=== PATIENT | female | born 1995 ===

== ENCOUNTER 2018-07-19 08:51 | Emergency (ER) | payer SELFPAY ==
[2018-07-19] MEDS ORDERED: Sodium Chloride 0.9% 1,000 ML IV ONE (09:12)
[2018-07-19 09:22] LABS: BASO % 0.5 % (0.0-2.0); EOS # 0.2 K/uL (0.0-0.7); EOS % 3.5 % (0.0-4.0); HEMOGLOBIN 12.4 g/dL (11.0-16.0); LYMPH # 1.2 K/uL (1.0-4.3); LYMPH % 21.2 % (20.0-40.0); MEAN CELL VOLUME 86.9 fL (81.0-99.0); MEAN CORPUSCULAR HEMOGLOBIN 28.5 pg (27.0-31.0); MEAN CORPUSCULAR HGB CONC 32.8 g/dL (33.0-37.0); MEAN PLATELET VOLUME 8.5 fL (7.2-11.7); MONO # 0.6 K/uL (0.0-0.8); MONO % 10.3 % (0.0-10.0); NEUT # 3.7 K/uL (1.8-7.0); NEUT % 64.5 % (50.0-75.0); RBC 4.33 Mil/uL (3.80-5.20); RED CELL DISTRIBUTION WIDTH 12.6 % (11.5-14.5); WHITE BLOOD COUNT 5.7 K/uL (4.8-10.8)
[2018-07-19 09:25] LABS: HCG,QUALITATIVE URINE NEGATIVE (NEGATIVE)
--- NOTE | 2018-07-19 09:26 | C.PDOC ---
History Of Present Illness 22 y/o female,w/PMhx of asthma, presents to the ER complaining of RLQ abdominal pain which has been present for the past 1 week. Patient states that she has associated nausea, vomiting, and dysuria. Patient reports that her LMP was 2 weeks ago. Denies having fever, chills, back pain, hematuria. Time Seen by Provider: 07/19/18 08:54 Chief Complaint (Nursing): Abdominal Pain History Per: Patient History/Exam Limitations: no limitations Onset/Duration Of Symptoms: Days Current Symptoms Are (Timing): Still Present Severity: Moderate Past Medical History Reviewed: Historical Data, Nursing Documentation, Vital Signs Vital Signs: Last Vital Signs Temp 97.9 F 07/19/18 08:54 Pulse 78 07/19/18 08:54 Resp 18 07/19/18 08:54 BP 129/78 07/19/18 08:54 Pulse Ox 97 07/19/18 08:54 - Medical History PMH: Asthma Surgical History: No Surg Hx Family History: States: No Known Family Hx - Social History Hx Alcohol Use: No Hx Substance Use: No - Immunization History Hx Tetanus Toxoid Vaccination: No Hx Influenza Vaccination: No Hx Pneumococcal Vaccination: No Review Of Systems Except As Marked, All Systems Reviewed And Found Negative. Constitutional: Negative for: Fever, Chills Gastrointestinal: Positive for: Nausea, Vomiting, Abdominal Pain. Negative for: Diarrhea Genitourinary: Positive for: Dysuria. Negative for: Hematuria Physical Exam - Physical Exam Appears: Non-toxic, No Acute Distress Skin: Normal Color, Warm, Dry Head: Atraumatic, Normacephalic Eye(s): bilateral: Normal Inspection Nose: Normal Oral Mucosa: Moist Neck: Supple Chest: Symmetrical Cardiovascular: Rhythm Regular Respiratory: Normal Breath Sounds, No Rales, No Rhonchi, No Wheezing Gastrointestinal/Abdominal: Soft, Tenderness (RLQ tenderness), No Guarding, No Rebound Neurological/Psych: Oriented x3, Normal Speech ED Course And Treatment - Laboratory Results Result Diagrams: 07/19/18 09:19 07/19/18 09:59 Lab Interpretation: Normal Urine POC: Negative O2 Sat by Pulse Oximetry: 97 (RA) Pulse Ox Interpretation: Normal - CT Scan/US No standard instances Other Rad Studies (CT/US): Read By Radiologist, Radiology Report Reviewed CT/US Interpretation: FINDINGS: UTERUS: Measures 9.2 x 5.2 x 6.2 cm. Anteverted. ENDOMETRIUM: Measures 0.5 cm. Trace fluid within the endometrium. CERVIX: Nabothian cysts. RIGHT OVARY: Measures 6.3 x 5.3 x 5.4 cm. Blood flow is demonstrated. Complex heterogeneous 5.6 x 4.7 x 4.5 cm avascular lesion in the right ovary consistent with complex cyst. 5 mm right nonspecific echo genic focus without corresponding calcifications seen on CT performed the same day. LEFT OVARY: Measures 3.9 x 1.6 x 3.2 cm. Blood flow is demonstrated. FREE FLUID: Small pelvic free fluid. OTHER FINDINGS: None. IMPRESSION: Complex heterogeneous 5.6 x 4.7 x 4.5 cm avascular lesion in the right ovary consistent with complex cyst. Recommend 6 week ultrasound for further evaluation. 5 mm right nonspecific right ovarian echogenic focus without corresponding calcifications seen on CT performed the same day. Small pelvic free fluid. Trace endometrial fluid. Progress Note: Treated with IVF NSS and toradol Reassessment Condition: Improved Medical Decision Making Medical Decision Making: Plan: --Labs --UA --CT - Abd & Pelv. --Toradol IV --Zofran IV --IV Fluids Disposition Counseled Patient/Family Regarding: Studies Performed, Diagnosis, Need For Followup - Disposition Referrals: [facility] [Outside] [facility] [Outside] Disposition: HOME/ ROUTINE Disposition Time: 13:00 Condition: STABLE Additional Instructions: Tylenol or advil as needed for pain Follow up with [facility]PER[facility] for further evaluation Instructions: Ovarian Cysts Forms: [facility] (Congolese) Print Language: YI - POA Present On Arrival: None - Clinical Impression Clinical Impression: Abdominal pain, Ovarian cyst - PA / MARKETING OPERATIONS ASSOCIATE / Resident Statement MD/DO has reviewed & agrees with the documentation as recorded. - Scribe Statement The provider has reviewed the documentation as recorded by the Maria Luisa Sierra Provider Attestation All medical record entries made by the Barryibmary were at my direction and personally dictated by me. I have reviewed the chart and agree that the record accurately reflects my personal performance of the history, physical exam, medical decision making, and the department course for this patient. I have also personally directed, reviewed, and agree with the discharge instructions and disposition.
[2018-07-19 09:27] LABS: SQUAMOUS EPITHIAL 6 /hpf (0-5); URINE BILIRUBIN NEGATIVE (NEGATIVE); URINE BLOOD NEGATIVE (NEGATIVE); URINE CLARITY Clear (Clear); URINE COLOR Yellow (YELLOW); URINE GLUCOSE (UA) NORMAL (Normal); URINE LEUKOCYTE ESTERASE 2+ Leu/uL (Negative); URINE PROTEIN 1+ mg/dL (NEGATIVE)
--- NOTE | 2018-07-19 10:34 | CT ---
Date of service: 07/19/2018 PROCEDURE: CT Abdomen and Pelvis without intravenous contrast HISTORY: Pain COMPARISON: None. TECHNIQUE: Helical CT of the abdomen and pelvis was performed without oral or intravenous contrast as per referring physician request. Coronal and sagittal reformats were generated. Contrast dose: None Radiation dose: Total exam DLP = 817.48 mGy-cm. This CT exam was performed using one or more of the following dose reduction techniques: Automated exposure control, adjustment of the mA and/or kV according to patient size, and/or use of iterative reconstruction technique. FINDINGS: LOWER THORAX: Small hiatal hernia identified. LIVER: Unremarkable. No gross lesion or ductal dilatation. GALLBLADDER AND BILE DUCTS: Unremarkable. PANCREAS: Unremarkable. No gross lesion or ductal dilatation. SPLEEN: Unremarkable. ADRENALS: Unremarkable. No mass. KIDNEYS AND URETERS: 2.5 mm nonobstructing intrarenal calculus lower pole left kidney. No radiodense urolithiasis identified right kidney. No obstructive uropathy bilaterally or perinephric reaction. VASCULATURE: Unremarkable. No aortic aneurysm. No aortic atherosclerotic calcification or mural plaque present. BOWEL: The bowel is nonobstructive. Variable retention of fecal material scattered throughout: Primarily of the of the proximal large bowel and the rectosigmoid. Small bowel appears largely collapsed with limited fluid and gas distending the stomach. Evaluation of the gastrointestinal tract is limited due to the lack of oral contrast administration. APPENDIX: Unremarkable. Normal appendix. PERITONEUM: There is a small umbilical hernia containing only fat. No abdominal ascites. No free intra peritoneal gas collection. LYMPH NODES: Shotty central mesenteric lymph nodes are appreciated as well as medial to the cecum and mesenteric adenitis not completely excluded. BLADDER: Nearly completely collapsed. No radiodense urolithiasis associated. REPRODUCTIVE: There appears to be right adnexal cyst measuring 3.5 x 4.5 cm which may account for the patient's symptoms. Trace fluid is associated peripheral to its which may indicate minimal partial rupture or reaction. No left adnexal findings grossly evident in this unenhanced exam. BONES: No acute fracture. OTHER FINDINGS: None. IMPRESSION: 1. Solitary intrarenal calculus is nonobstructive at the lower pole left kidney 2.5 mm greatest dimension. No radiodense urolithiasis right kidney or urinary bladder. Urinary bladder is nearly completely decompressed and limited in evaluation. 2. Lack of oral and intravenous contrast limits evaluation outside of the urolithiasis indication. 3.5 x 4.5 cm cyst is suggested at the right adnexal compartment, potentially accounting for the patient's symptoms. The appendix fills the separate from this area and unremarkable. Follow-up transvaginal ultrasonography can be utilized for greater characterization.
[2018-07-19 10:43] LABS: ALB/GLOB RATIO 1.3 (1.0-2.1); ALBUMIN 3.9 g/dL (3.5-5.0); ALT/SGPT 11 U/L (9-52); AST/SGOT 22 U/L (14-36); BLOOD UREA NITROGEN 10 mg/dL (7-17); CALCIUM 8.4 mg/dl (8.6-10.4); GFR NON-AFRICAN AMERICAN > 60
--- NOTE | 2018-07-19 12:40 | US ---
Date of service: 07/19/2018 HISTORY: vaginal bleeding COMPARISON: No prior ultrasound available for direct comparison. CT of the abdomen and pelvis without contrast performed 07/19/18 TECHNIQUE: Real-time transabdominal pelvic ultrasound was performed. In addition a transvaginal pelvic ultrasound was necessary to better depict pelvic anatomy. FINDINGS: UTERUS: Measures 9.2 x 5.2 x 6.2 cm. Anteverted. ENDOMETRIUM: Measures 0.5 cm. Trace fluid within the endometrium. CERVIX: Nabothian cysts. RIGHT OVARY: Measures 6.3 x 5.3 x 5.4 cm. Blood flow is demonstrated. Complex heterogeneous 5.6 x 4.7 x 4.5 cm avascular lesion in the right ovary consistent with complex cyst. 5 mm right nonspecific echogenic focus without corresponding calcifications seen on CT performed the same day. LEFT OVARY: Measures 3.9 x 1.6 x 3.2 cm. Blood flow is demonstrated. FREE FLUID: Small pelvic free fluid. OTHER FINDINGS: None. IMPRESSION: Complex heterogeneous 5.6 x 4.7 x 4.5 cm avascular lesion in the right ovary consistent with complex cyst. Recommend 6 week ultrasound for further evaluation. 5 mm right nonspecific right ovarian echogenic focus without corresponding calcifications seen on CT performed the same day. Small pelvic free fluid. Trace endometrial fluid.
[2018-07-19 13:17] VITALS: BP 110/66; PULSE 69; RESP 20; TEMP 98.4
[2018-07-19 19:04] VITALS: O2SAT 97
== END 2018-07-19 13:19 | disposition home or self-care (01) ==
LOC: C.ER 08:51
DX: N83.209 Unspecified ovarian cyst, unspecified side (principal); R10.31 Right lower quadrant pain
CPT/HCPCS: 74176; 76830; 76856; 80053; 81001; 84703; 85025; 96361; 96374; 96375; 99285; J1885; J2405; J7030

== ENCOUNTER 2018-07-19 23:53 | Emergency (ER) | payer SELFPAY | END 2018-07-20 02:45 | disposition home or self-care (01) | LOC: C.ER 23:53 ==

== ENCOUNTER 2018-07-20 21:13 | Observation (INO) | payer MEDICAID ==
[2018-07-20] MEDS ORDERED: Sodium Chloride 0.9% 1,000 ML IV ONE (21:55)
[2018-07-20 22:17] LABS: BASO % 0.2 % (0.0-2.0); EOS % 0.4 % (0.0-4.0); HEMOGLOBIN 11.9 g/dL (11.0-16.0); LYMPH # 0.8 K/uL (1.0-4.3); LYMPH % 10.3 % (20.0-40.0); MEAN CELL VOLUME 87.1 fL (81.0-99.0); MEAN CORPUSCULAR HEMOGLOBIN 28.9 pg (27.0-31.0); MEAN CORPUSCULAR HGB CONC 33.2 g/dL (33.0-37.0); MEAN PLATELET VOLUME 8.6 fL (7.2-11.7); MONO # 0.6 K/uL (0.0-0.8); MONO % 7.3 % (0.0-10.0); NEUT # 6.6 K/uL (1.8-7.0); NEUT % 81.8 % (50.0-75.0); RBC 4.11 Mil/uL (3.80-5.20); RED CELL DISTRIBUTION WIDTH 12.4 % (11.5-14.5)
[2018-07-20 22:26] LABS: SQUAMOUS EPITHIAL 14 /hpf (0-5); URINE BILIRUBIN NEGATIVE (NEGATIVE); URINE BLOOD NEGATIVE (NEGATIVE); URINE CLARITY Hazy (Clear); URINE COLOR Amber (YELLOW); URINE GLUCOSE (UA) NORMAL (Normal); URINE LEUKOCYTE ESTERASE 3+ Leu/uL (Negative); URINE PROTEIN 2+ mg/dL (NEGATIVE)
--- NOTE | 2018-07-20 22:27 | C.PDOC ---
History Of Present Illness 22 year old female with Hx of ovarian cyst recently seen in the ER presents with epigastric abdominal pain after naproxen. Patient took naproxen for her ovarian cyst pain and noticed a single streak of blood with multiple episodes of vomiting. She reports the vomit was nonyellow noncoffee ground. Denies fall, trauma, urinary symptoms, dark/bloody stools, or vaginal discharge. LMP was at the beginning of the month and was normal as per patient. Time Seen by Provider: 07/20/18 21:49 Chief Complaint (Nursing): GI Problem History Per: Patient History/Exam Limitations: no limitations Onset/Duration Of Symptoms: Hrs Current Symptoms Are (Timing): Still Present Location Of Pain/Discomfort: Epigastric Radiation Of Pain To:: None Quality Of Discomfort: Unable To Describe Associated Symptoms: Vomiting Exacerbating Factors: None Alleviating Factors: None Recent travel outside of the [place]: No Abnormal Vaginal Bleeding: No Past Medical History Reviewed: Historical Data, Nursing Documentation, Vital Signs Vital Signs: Last Vital Signs Temp 98.1 F 07/20/18 21:18 Pulse 67 07/20/18 21:18 Resp 18 07/20/18 21:18 BP 123/75 07/20/18 21:18 Pulse Ox 99 07/20/18 21:18 - Medical History PMH: Asthma Family History: States: Unknown Family Hx - Social History Hx Alcohol Use: Yes Hx Substance Use: No - Immunization History Hx Tetanus Toxoid Vaccination: No Hx Influenza Vaccination: No Hx Pneumococcal Vaccination: No Review Of Systems Constitutional: Negative for: Fever, Chills Cardiovascular: Negative for: Chest Pain, Palpitations Respiratory: Negative for: Cough, Shortness of Breath Gastrointestinal: Positive for: Vomiting. Negative for: Other (Dark/bloody stools) Genitourinary: Negative for: Dysuria, Hematuria, Vaginal Discharge Physical Exam - Physical Exam Appears: Non-toxic Skin: Normal Color, Warm, Dry Head: Atraumatic, Normacephalic Eye(s): bilateral: Normal Inspection Oral Mucosa: Moist Neck: Normal, Supple Chest: Symmetrical, No Tenderness Cardiovascular: Rhythm Regular Respiratory: Normal Breath Sounds, No Rales, No Rhonchi, No Wheezing Gastrointestinal/Abdominal: Soft, Tenderness (Epigastric), No Guarding, No Rebound Back: No CVA Tenderness Neurological/Psych: Oriented x3, Normal Speech ED Course And Treatment - Laboratory Results Result Diagrams: 07/20/18 22:10 07/20/18 22:10 O2 Sat by Pulse Oximetry: 99 (room air) Pulse Ox Interpretation: Normal Medical Decision Making Medical Decision Making: Symptoms likely due to gastritis vs recurrent abdominal vs medication side effect vs ulcer, will seek imaging and labs. 1139 US largely unchanged from previous one done yesterday No vaginal d/c or rash per pt. No high risk behavior per pt Remains nauseated despite reglan given recurrent visits over the past 36 hrs for abd pain will seek obs. Non- peritoneal on repeat exam. No RLQ or RUQ pain. Appreciate consult w/ Dr. Elena: to admit to his service. Disposition - Disposition Disposition Time: 23:30 Condition: GOOD Forms: [facility] (Singaporean) - Clinical Impression Clinical Impression: Gastritis, Abdominal pain - Scribe Statement The provider has reviewed the documentation as recorded by the Scribe Rich Chicas All medical record entries made by the Scribe were at my direction and personally dictated by me. I have reviewed the chart and agree that the record accurately reflects my personal performance of the history, physical exam, medical decision making, and the department course for this patient. I have also personally directed, reviewed, and agree with the discharge instructions and disposition.
[2018-07-20 22:42] LABS: ALB/GLOB RATIO 1.2 (1.0-2.1); ALBUMIN 4.3 g/dL (3.5-5.0); ALT/SGPT 11 U/L (9-52); AST/SGOT 22 U/L (14-36); BLOOD UREA NITROGEN 8 mg/dL (7-17); GFR NON-AFRICAN AMERICAN > 60; LIPASE 33 U/L (23-300)
--- NOTE | 2018-07-21 00:36 | CP.PCM.HP ---
<AbdoulErickson - Last Filed: 07/21/18 02:38> History of Present Illness - History of Present Illness History of Present Illness: PGY-1 History and Physical for Dr. Elena Patient is a 22 year old female with past medical history of ovarian cysts presenting to ED with acute onset epigastric abdominal pain after taking 1000 mg Naproxen earlier today on empty stomach for pain 2/2 ovarian cyst. Patient endorses associated nausea and multiple episodes of NBNB vomiting at home prior to arrival. She denies any chest pain, palpitations, sob, cough, diarrhea/constipation, melena, hematochezia, vaginal bleeding or discharge. LMP was at the beginning of this month and normal flow. 12 pt ROS reviewed and otherwise negative. Of note, patient was seen in ED yesterday for lower abdom inal pain, was discharged on naproxen 800 mg TID prn. PMHx: b/l ovarian cyst PSHx: none Allergies: NKDA Home Medications: Naproxen 800 mg PO TID prn Family Hx: unknown Social Hx: social drinker, denies any tobacco or illicit drug use. 2 children, both vaginal deliver, age 6 and 4. 1 miscarriage in the past. Present on Admission - Present on Admission Any Indicators Present on Admission: No Review of Systems - Review of Systems All systems: reviewed and no additional remarkable complaints except Review of Systems: as per HPI Past Patient History - Infectious Disease Hx of Infectious Diseases: None - Past Social History Smoking Status: Never Smoked - PULMONARY Hx Asthma: Yes - PSYCHIATRIC Hx Substance Use: No - SURGICAL HISTORY Hx Surgeries: No - ANESTHESIA Hx Anesthesia: No Meds Allergies/Adverse Reactions: Allergies Allergy/AdvReac Type Severity Reaction Status Date / Time No Known Allergies Allergy Verified 07/20/18 21:17 Physical Exam - Constitutional Appears: Non-toxic - Head Exam Head Exam: ATRAUMATIC, NORMAL INSPECTION, NORMOCEPHALIC - Eye Exam Eye Exam: EOMI, Normal appearance Pupil Exam: NORMAL ACCOMODATION - ENT Exam ENT Exam: Mucous Membranes Dry, Normal Exam - Neck Exam Neck exam: Positive for: Full Rom, Normal Inspection. Negative for: Tenderness - Respiratory Exam Respiratory Exam: Clear to Auscultation Bilateral, NORMAL BREATHING PATTERN. absent: Accessory Muscle Use, Rales, Rhonchi, Wheezes, Respiratory Distress, Stridor - Cardiovascular Exam Cardiovascular Exam: REGULAR RHYTHM, +S1, +S2 - GI/Abdominal Exam GI & Abdominal Exam: Normal Bowel Sounds, Soft, Tenderness. absent: Distended, Firm, Guarding, Rebound, Rigid - Extremities Exam Extremities exam: Positive for: normal capillary refill, normal inspection, pedal pulses present. Negative for: calf tenderness, pedal edema - Back Exam Back exam: NORMAL INSPECTION - Neurological Exam Neurological exam: Alert, Oriented x3 - Psychiatric Exam Psychiatric exam: Normal Affect, Normal Mood - Skin Skin Exam: Dry, Intact, Normal Color, Warm Results - Vital Signs Recent Vital Signs: Last Vital Signs Temp 98.5 F 07/21/18 00:05 Pulse 78 07/21/18 00:05 Resp 20 07/21/18 00:05 BP 127/79 07/21/18 00:05 Pulse Ox 97 07/21/18 00:05 - Labs Result Diagrams: 07/20/18 22:10 07/20/18 22:10 Labs: Laboratory Results - last 24 hr 07/20/18 07/20/18 07/20/18 22:10 22:10 22:10 WBC 8.0 RBC 4.11 Hgb 11.9 Hct 35.8 MCV 87.1 MCH 28.9 MCHC 33.2 RDW 12.4 Plt Count 263 MPV 8.6 Neut % (Auto) 81.8 H Lymph % (Auto) 10.3 L [place] % (Auto) 7.3 Eos % (Auto) 0.4 Baso % (Auto) 0.2 Neut # (Auto) 6.6 Lymph # (Auto) 0.8 L [place] # (Auto) 0.6 Eos # (Auto) 0.0 Baso # (Auto) 0.0 Sodium 139 Potassium 3.4 L Chloride 105 Carbon Dioxide 26 Anion Gap 12 BUN 8 Creatinine 0.5 L Est GFR ( Amer) > 60 Est GFR (Non-Af Amer) > 60 Random Glucose 118 H D Calcium 9.0 Magnesium 1.8 Total Bilirubin 0.4 AST 22 ALT 11 Alkaline Phosphatase 69 Total Protein 7.8 Albumin 4.3 Globulin 3.5 Albumin/Globulin Ratio 1.2 Lipase 33 Urine Color Val Urine Clarity Hazy Urine pH 6.0 Ur Specific [place] 1.031 H Urine Protein 2+ H Urine Glucose (UA) Normal Urine Ketones 2+ H Urine Blood Negative Urine Nitrate Negative Urine Bilirubin Negative Urine Urobilinogen 4.0 H Ur Leukocyte Esterase 3+ H Urine WBC (Auto) 35 H Urine RBC (Auto) 9 H Ur Squamous Epith Cells 14 H Assessment & Plan - Assessment and Plan (Free Text) Assessment: 22 year old obese female presenting to ED with intractable epigastric abdominal pain and associated nausea/NBNB vomiting after taking Naproxen earlier today. Plan: Acute onset abdominal pain likely 2/2 gastritis -sharp epigastric abdominal pain s/p 1000 mg Naproxen earlier today -vs snl -lipase wnl -H/H stable, no signs of active bleeding on clinical exam -s/p IVF, reglan 10 mg x1, pepcid 20 mg x1, rocephin x 1 in ED -CT abdomen/pelvis (07/19/18): solitary L infrarenal calculus, nonobstructive, 2.5mm. 3.5 x 4.5 cm R adnexal cyst. -UDS -serum alcohol, salicylate -am labs -A1C -lipid panel -f/u Urine Cx -NPO -IVF -zofran 4mg q6 prn for nausea -tylenol 650 mg q6 prn for pain -protonix 40 mg daily -abdominal u/s Bilateral complex ovarian cysts -transvaginal u/s: R complex ovarian cyst 5.55cm x 4.81 cm x 4.77 cm. R ovarian calcification noted. L complex ovarian cyst 1.54 x 1.07 x 1.32 cm. PPx, Diet, Disposition -DVT ppx: scds -GI ppx: protonix -Diet: NPO Case discussed with Dr. Ulices Schreiber DO, PGY-1 <Martín Elena P - Last Filed: 07/21/18 08:08> Results - Vital Signs Recent Vital Signs: Last Vital Signs Temp 98.3 F 07/21/18 07:53 Pulse 68 07/21/18 07:53 Resp 20 07/21/18 07:53 BP 112/64 07/21/18 07:53 Pulse Ox 100 07/21/18 07:53 - Labs Result Diagrams: 07/20/18 22:10 07/20/18 22:10 Labs: Laboratory Results - last 24 hr 07/20/18 07/20/18 07/20/18 22:10 22:10 22:10 WBC 8.0 RBC 4.11 Hgb 11.9 Hct 35.8 MCV 87.1 MCH 28.9 MCHC 33.2 RDW 12.4 Plt Count 263 MPV 8.6 Neut % (Auto) 81.8 H Lymph % (Auto) 10.3 L [place] % (Auto) 7.3 Eos % (Auto) 0.4 Baso % (Auto) 0.2 Neut # (Auto) 6.6 Lymph # (Auto) 0.8 L [place] # (Auto) 0.6 Eos # (Auto) 0.0 Baso # (Auto) 0.0 Sodium 139 Potassium 3.4 L Chloride 105 Carbon Dioxide 26 Anion Gap 12 BUN 8 Creatinine 0.5 L Est GFR ( Amer) > 60 Est GFR (Non-Af Amer) > 60 Random Glucose 118 H D Calcium 9.0 Magnesium 1.8 Total Bilirubin 0.4 AST 22 ALT 11 Alkaline Phosphatase 69 Total Protein 7.8 Albumin 4.3 Globulin 3.5 Albumin/Globulin Ratio 1.2 Triglycerides Cholesterol LDL Cholesterol Direct HDL Cholesterol Lipase 33 Urine Color Val Urine Clarity Hazy Urine pH 6.0 Ur Specific [place] 1.031 H Urine Protein 2+ H Urine Glucose (UA) Normal Urine Ketones 2+ H Urine Blood Negative Urine Nitrate Negative Urine Bilirubin Negative Urine Urobilinogen 4.0 H Ur Leukocyte Esterase 3+ H Urine WBC (Auto) 35 H Urine RBC (Auto) 9 H Ur Squamous Epith Cells 14 H Salicylates Urine Opiates Screen Urine Methadone Screen Acetaminophen Ur Barbiturates Screen Ur Phencyclidine Scrn Ur Amphetamines Screen U Benzodiazepines Scrn U Oth Cocaine Metabols U Cannabinoids Screen Alcohol, Quantitative 07/21/18 07/21/18 07/21/18 03:28 03:33 03:33 WBC RBC Hgb Hct MCV MCH MCHC RDW Plt Count MPV Neut % (Auto) Lymph % (Auto) [place] % (Auto) Eos % (Auto) Baso % (Auto) Neut # (Auto) Lymph # (Auto) [place] # (Auto) Eos # (Auto) Baso # (Auto) Sodium Potassium Chloride Carbon Dioxide Anion Gap BUN Creatinine Est GFR ( Amer) Est GFR (Non-Af Amer) Random Glucose Calcium Magnesium Total Bilirubin AST ALT Alkaline Phosphatase Total Protein Albumin Globulin Albumin/Globulin Ratio Triglycerides 47 Cholesterol 132 LDL Cholesterol Direct 80 HDL Cholesterol 47 Lipase Urine Color Urine Clarity Urine pH Ur Specific [place] Urine Protein Urine Glucose (UA) Urine Ketones Urine Blood Urine Nitrate Urine Bilirubin Urine Urobilinogen Ur Leukocyte Esterase Urine WBC (Auto) Urine RBC (Auto) Ur Squamous Epith Cells Salicylates < 1.0 Urine Opiates Screen Negative Urine Methadone Screen Negative Acetaminophen < 10.0 L Ur Barbiturates Screen Negative Ur Phencyclidine Scrn Negative Ur Amphetamines Screen Negative U Benzodiazepines Scrn Negative U Oth Cocaine Metabols Negative U Cannabinoids Screen Negative Alcohol, Quantitative < 10 Attending/Attestation - Attestation I have personally seen and examined this patient.: Yes I have fully participated in the care of the patient.: Yes I have reviewed all pertinent clinical information: Yes Notes (Text): 07/21/18 08:07 Symptoms and onset suggest gastritis related to NSAIDS, but pain bit out of proportion, will keep npo, if the pain continues, may repeat CT with po and iv contrast and consult gi for possible endoscopy. PPI, ivf, see orders for detail.
[2018-07-21] MEDS ORDERED: Potassium Chloride 20 mEq ER Tab PO ONE ×2 (01:50→03:16)
[2018-07-21] MEDS ORDERED: Sodium Chloride 0.9% 1,000 ML ONE (03:16)
[2018-07-21] MEDS: Sodium Chloride 0.9% 1,000 ML IV SCH ×3 (03:17→18:00)
[2018-07-21 03:47] LABS: BARBITURATES, UR NEGATIVE (NEGATIVE); BENZODIAZEPINES, UR NEGATIVE (NEGATIVE); OPIATES, UR NEGATIVE (NEGATIVE); PHENCYCLIDINE, UR NEGATIVE (NEGATIVE)
[2018-07-21 03:48] LABS: HDL CHOLESTEROL 47 mg/dL (30-70)
[2018-07-21 03:53] VITALS: RESP 20
[2018-07-21 03:56] LABS: ACETAMINOPHEN < 10.0 ug/mL (10.0-30.0); SALICYLATE < 1.0 {null, mg/dL 1}
[2018-07-21 03:59] LABS: LDL CHOLESTEROL 80 mg/dL (0-129)
--- NOTE | 2018-07-21 08:33 | US ---
Abdominal ultrasound HISTORY: Epigastric pain. Comparison: CT dated 07/19/2018 Technique: Real-time sonography was performed through the abdomen. Findings: Liver: 17.6 centimeters in length. Normal echogenicity. Gallbladder: No calculi or sludge. Top normal wall thickness of 3.1 millimeters. No gross wall edema. Negative sonographic Stubbs's sign. Common bile duct measures 3.3 millimeters, within normal limits. Limited visualization of the pancreas. Spleen measures 9.3 centimeters in length, within normal limits. Visualized aorta and IVC are preserved. Right kidney: 11.4 x 4.8 x 5.5 centimeters. No calculi or hydronephrosis. Left Kidney: 12.1 x 5.4 x 5.2 centimeters. Midpole 5 x 4 x 6 millimeter nonobstructive echogenic calculus. No hydronephrosis. Impression: 6 millimeter nonobstructive midpole left renal calculus. Limited visualization of the pancreas.
--- NOTE | 2018-07-21 14:19 | CP.PCM.PN ---
Subjective - Date & Time of Evaluation Date of Evaluation: 07/21/18 Time of Evaluation: 07:19 - Subjective Subjective: PGY-1 Amber Barajas D.O. Medicine progress note for Dr. Robbins's service: Patient was examined at bedside. No acute events overnight. Today patient reports improvement in her epigastric abdominal pain. She denies nausea, however after ingestion of solid foods, patient vomited again. Patient also reports that she has been unable to pass a bowel movement in 4 days. Otherwise, she denies chest pain, palpitations, SOB, cough, diarrhea, melena, or hematochezia. Attempted PO diet in the afternoon. Patient vomited immediately after eating about half of her tray. Objective - Vital Signs/Intake and Output Vital Signs (last 24 hours): Temp Pulse Resp BP Pulse Ox 98.3 F 68 20 112/64 100 07/21/18 07:53 07/21/18 07:53 07/21/18 07:53 07/21/18 07:53 07/21/18 07:53 - Medications Medications: Current Medications Acetaminophen (Tylenol 325mg Tab) 650 mg PO Q6 PRN PRN Reason: Pain, Mild (1-3) Last Admin: 07/21/18 06:32 Dose: 650 mg Sodium Chloride (Sodium Chloride 0.9%) 1,000 mls @ 125 mls/hr IV .Q8H [facility] Last Admin: 07/21/18 09:20 Dose: 125 mls/hr Influenza Virus Vaccine (Flucelvax Quad [id number] Syr) 60 mcg IM .ONCE ONE Stop: 07/22/18 10:01 Ondansetron HCl (Zofran Inj) 4 mg IVP Q6 PRN PRN Reason: Nausea/Vomiting Pantoprazole Sodium (Protonix Inj) 40 mg IVP DAILY [facility] Last Admin: 07/21/18 09:18 Dose: 40 mg Pneumococcal Polyvalent Vaccine (Pneumovax 23 Vaccine) 0.5 ml IM .ONCE ONE Stop: 07/23/18 10:01 - Labs Labs: 07/20/18 22:10 07/20/18 22:10 - Constitutional Appears: Non-toxic, No Acute Distress - Head Exam Head Exam: ATRAUMATIC, NORMAL INSPECTION - Eye Exam Eye Exam: EOMI, Normal appearance - ENT Exam ENT Exam: Mucous Membranes Moist - Neck Exam Neck Exam: Normal Inspection - Respiratory Exam Respiratory Exam: Clear to Ausculation Bilateral, NORMAL BREATHING PATTERN - Cardiovascular Exam Cardiovascular Exam: RRR, +S1, +S2 - GI/Abdominal Exam GI & Abdominal Exam: Soft. absent: Distended, Tenderness - Extremities Exam Extremities Exam: Normal Inspection. absent: Pedal Edema - Back Exam Back Exam: NORMAL INSPECTION - Neurological Exam Neurological Exam: Alert, Awake, CN II-XII Intact, Oriented x3 - Psychiatric Exam Psychiatric exam: Normal Affect, Normal Mood - Skin Skin Exam: Dry, Normal Color, Warm Assessment and Plan - Assessment and Plan (Free Text) Assessment: Patient is a 22 yo with history of ovarian cysts who presented to the ED with abdominal pain and vomiting. Plan: Abdominal pain and vomiting - Abdominal US: 6 millimeter nonobstructive midpole left renal calculus. Limited visualization of the pancreas. - Lipase wnl (33) - Lipid panel wnl - A1c 5.8 - Clear liquids- ADAT - NS @ 125 mL/hr - Zofran IV PRN - Protonix 40 mg IV daily - Tylenol 650 mg PO Q6H PRN - Replete electrolytes PRN Ovarian cysts - Transvaginal US: 5.6x4.8x4.8 cm complex cyst on the R ovary, smaller cyst on L ovary - Follow-up as outpatient Ppx: VTE: SCDs, ambulatory GI: PTX 40 mg IV daily Code status: full code Case discussed with attending, Dr. Robbins.
[2018-07-22] MEDS: Sodium Chloride 0.9% 1,000 ML IV SCH ×3 (02:00→11:23)
[2018-07-22 07:37] LABS: BASO % 0.2 % (0.0-2.0); EOS % 0.2 % (0.0-4.0); LYMPH # 0.9 K/uL (1.0-4.3); LYMPH % 12.3 % (20.0-40.0); MEAN CELL VOLUME 86.3 fL (81.0-99.0); MEAN CORPUSCULAR HEMOGLOBIN 28.9 pg (27.0-31.0); MEAN CORPUSCULAR HGB CONC 33.5 g/dL (33.0-37.0); MEAN PLATELET VOLUME 8.6 fL (7.2-11.7); MONO # 0.7 K/uL (0.0-0.8); MONO % 9.8 % (0.0-10.0); NEUT # 5.5 K/uL (1.8-7.0); NEUT % 77.5 % (50.0-75.0); RBC 3.81 Mil/uL (3.80-5.20); RED CELL DISTRIBUTION WIDTH 12.4 % (11.5-14.5); WHITE BLOOD COUNT 7.1 K/uL (4.8-10.8)
[2018-07-22 07:59] LABS: ALB/GLOB RATIO 1.1 (1.0-2.1); ALBUMIN 3.5 g/dL (3.5-5.0); ALT/SGPT 24 U/L (9-52); AST/SGOT 25 U/L (14-36); BLOOD UREA NITROGEN 5 mg/dL (7-17); CALCIUM 8.2 mg/dl (8.6-10.4); GFR NON-AFRICAN AMERICAN > 60
--- NOTE | 2018-07-22 08:38 | CP.PCM.PN ---
<Amber Barajas - Last Filed: 07/22/18 15:02> Subjective - Date & Time of Evaluation Date of Evaluation: 07/22/18 Time of Evaluation: 08:37 - Subjective Subjective: PGY-1 Amber Barajas D.O. Medicine progress note for Dr. Mayorga's service: Patient was examined at bedside. She reports that she continues to have sharp epigastric pain and nausea and that she was up all night vomiting. She describes the vomit as light yellow in color and says that everything she tries to eat she vomits back up. She has also been unable to pass a bowel movement in 6 days but is able to urinate. Patient denies chest pain, palpitations, SOB, headache, vision changes, diarrhea, dysuria, melena, or hematochezia. Patient was examined later in the afternoon. She last vomited at 12 PM but has since toelrated clear liquids. Will advance diet as tolerated and continue to monitor. Objective - Vital Signs/Intake and Output Vital Signs (last 24 hours): Temp Pulse Resp BP Pulse Ox 98.3 F 70 20 143/82 97 07/22/18 00:00 07/22/18 00:00 07/22/18 00:00 07/22/18 00:00 07/22/18 00:00 Intake and Output: 07/22/18 07/22/18 06:59 18:59 Intake Total 2400 Output Total 600 Balance 1800 - Medications Medications: Current Medications Acetaminophen (Tylenol 325mg Tab) 650 mg PO Q6 PRN PRN Reason: Pain, Mild (1-3) Last Admin: 07/22/18 05:01 Dose: 650 mg Sodium Chloride (Sodium Chloride 0.9%) 1,000 mls @ 125 mls/hr IV .Q8H [facility] Last Admin: 07/22/18 07:41 Dose: 125 mls/hr Influenza Virus Vaccine (Flucelvax Quad [id number] Syr) 60 mcg IM .ONCE ONE Stop: 07/22/18 10:01 Ondansetron HCl (Zofran Inj) 4 mg IVP Q6 PRN PRN Reason: Nausea/Vomiting Last Admin: 07/22/18 07:44 Dose: 4 mg Pantoprazole Sodium (Protonix Inj) 40 mg IVP DAILY [facility] Last Admin: 01/25/19 09:18 Dose: 40 mg Pneumococcal Polyvalent Vaccine (Pneumovax 23 Vaccine) 0.5 ml IM .ONCE ONE Stop: 07/23/18 10:01 Potassium Chloride (K-Dur 20 Meq Er Tab) 40 meq PO ONCE ONE Stop: 07/22/18 08:32 - Labs Labs: 07/22/18 07:17 07/22/18 07:17 - Additional Findings Additional findings: - Constitutional Appears: Non-toxic, No Acute Distress - Head Exam Head Exam: ATRAUMATIC, NORMAL INSPECTION - Eye Exam Eye Exam: EOMI, Normal appearance - ENT Exam ENT Exam: Mucous Membranes Moist - Neck Exam Neck Exam: Normal Inspection - Respiratory Exam Respiratory Exam: Clear to Auscultation Bilateral, NORMAL BREATHING PATTERN - Cardiovascular Exam Cardiovascular Exam: RRR, +S1, +S2 - GI/Abdominal Exam GI & Abdominal Exam: Soft, Tenderness- diffuse. absent: Distended - Extremities Exam Extremities Exam: Normal Inspection. absent: Pedal Edema - Back Exam Back Exam: NORMAL INSPECTION - Neurological Exam Neurological Exam: Alert, Awake, CN II-XII Intact, Oriented x3 - Psychiatric Exam Psychiatric exam: Normal Affect, Normal Mood - Skin Skin Exam: Dry, Normal Color, Warm Assessment and Plan - Assessment and Plan (Free Text) Assessment: Patient is a 22 yo with history of ovarian cysts who presented to the ED with abdominal pain and vomiting. Plan: Abdominal pain and vomiting, improving - Abdominal US: 6 millimeter nonobstructive midpole left renal calculus. Limited visualization of the pancreas. - Afebrile, no leukocytosis - Lipase wnl (33) - Lipid panel wnl - A1c 5.8 - Full liquids- ADAT - NS @ 125 mL/hr - Protonix 40 mg IV daily - Zofran 4 mg IV Q6H PRN - Reglan 10 mg IV Q8H PRN - Tylenol 650 mg PO Q6H PRN - Morphine 1 mg IV Q4H PRN - Replete electrolytes PRN Constipation - Patient reported no BMs in 6 days - Dulcolax ND--> 2 BMs today 07/22 Ovarian cysts - Transvaginal US: 5.6x4.8x4.8 cm complex cyst on the R ovary, smaller cyst on L ovary - Follow-up as outpatient Ppx: VTE: SCDs, ambulatory GI: PTX 40 mg IV daily Code status: full code Case discussed with attending, Dr. Mayorga. <Leonid Mayorga - Last Filed: 07/22/18 15:34> Objective - Vital Signs/Intake and Output Vital Signs (last 24 hours): Temp Pulse Resp BP Pulse Ox 98.0 F 66 20 137/82 97 07/22/18 08:00 07/22/18 08:00 07/22/18 08:00 07/22/18 08:00 07/22/18 09:27 Intake and Output: 07/22/18 07/22/18 06:59 18:59 Intake Total 2400 Output Total 600 Balance 1800 - Medications Medications: Current Medications Acetaminophen (Tylenol 325mg Tab) 650 mg PO Q6 PRN PRN Reason: Pain, Mild (1-3) Last Admin: 07/22/18 05:01 Dose: 650 mg Sodium Chloride (Sodium Chloride 0.9%) 1,000 mls @ 125 mls/hr IV .Q8H [facility] Last Admin: 07/22/18 11:23 Dose: Not Given Metoclopramide HCl (Reglan) 10 mg IVP Q8H PRN PRN Reason: Nausea/Vomiting Morphine Sulfate (Morphine) 1 mg IVP Q4 PRN PRN Reason: Pain, severe (8-10) Last Admin: 07/22/18 10:41 Dose: 1 mg Ondansetron HCl (Zofran Inj) 4 mg IVP Q6 PRN PRN Reason: Nausea/Vomiting Last Admin: 07/22/18 07:44 Dose: 4 mg Pantoprazole Sodium (Protonix Inj) 40 mg IVP DAILY [facility] Last Admin: 07/22/18 11:24 Dose: 40 mg Pneumococcal Polyvalent Vaccine (Pneumovax 23 Vaccine) 0.5 ml IM .ONCE ONE Stop: 07/23/18 10:01 - Labs Labs: 07/22/18 07:17 07/22/18 07:17 Attending/Attestation - Attestation I have personally seen and examined this patient.: Yes I have fully participated in the care of the patient.: Yes I have reviewed all pertinent clinical information, including history, physical exam and plan: Yes Notes (Text): 07/22/18 15:33 Medical attending: Patient was seen and examined by me. Reviewed the above note by the resident and agree The patient was not in any acute distress however she reported ongoing nausea and vommitting. At this time we are continuing with IVK, K replacement. Continue with the IV zofran as well as add on reglan. Leonid Mayorga
[2018-07-22] MEDS ORDERED: Potassium Chloride 20 mEq ER Tab PO ONE (09:00)
[2018-07-22] MEDS ORDERED: Morphine 4 MG/ML VIAL IVP PRN (09:41)
[2018-07-22] MEDS ORDERED: Influenza Vaccine 60 mcg/0.5 mL SYR (4YR UP) IM ONE (10:00)
--- NOTE | 2018-07-22 14:08 | US ---
Pelvic ultrasound HISTORY: Pelvic pain. Comparison: None available. TECHNIQUE: Real-time sonography was performed through the pelvis utilizing transvaginal technique. Findings: Uterus: 9.3 x 5.1 x 6.2 centimeters. Heterogeneous echotexture. Anteverted. Endometrium measures 9.6 millimeters, prominent. Free fluid noted within the pelvic cul-de-sac. Nabothian cysts noted at the cervix. Right ovary: Prominent. 6.1 x 5.1 x 6.2 centimeters. Normal flow. Complex heterogeneous cyst with internal echogenicity measuring 5.6 x 4.8 x 4.8 centimeters. Associated echogenic calcification measuring 4.5 millimeters which may represent a dermoid focus. Free fluid adjacent to the right ovary. Left ovary: Prominent. 5.0 x 2.6 x 3.5 centimeters. Normal flow. Hypoechoic left ovarian cyst measuring 1.5 x 1.1 x 1.3 centimeters. Adjacent follicles. Impression: Large heterogeneous complex right ovarian cystic lesion measuring up to 5.6 centimeters with associated increased internal echogenicity. This is of uncertain clinical etiology. Clinical correlation. Adjacent small right ovarian echogenic calcification measuring 5 millimeters. Small dermoid focus cannot be excluded. Clinical correlation. 1.5 centimeter left ovarian cyst. Prominent endometrium measuring 9.6 millimeters. Nabothian cysts noted at the level of the cervix. Free fluid within the pelvic cul-de-sac.
[2018-07-22 17:16] VITALS: BP 114/71; PULSE 71; TEMP 97.8; O2SAT 99
--- NOTE | 2018-07-22 17:45 | CP.PCM.DIS ---
<Amber Barajas - Last Filed: 07/22/18 18:17> Provider - Provider Date of Admission: 07/20/18 23:38 Attending physician: Blayne Robbins MD Primary care physician: none Consults: none Time Spent in preparation of Discharge (in minutes): 45 Diagnosis - Discharge Diagnosis (1) Vomiting Status: Resolved Priority: High (2) Abdominal pain Status: Resolved Priority: High (3) Ovarian cyst Status: Chronic Priority: Medium Hospital Course - Lab Results Lab Results: Micro Results 07/21/18 00:31 Urine,Clean Catch Urine Culture - Final 10-50,000 CFU/ML. MULTIPLE SPECIES. PROBABLE CONTAMINATION. Most Recent Lab Values WBC 7.1 K/uL (4.8-10.8) 07/22/18 07:17 RBC 3.81 Mil/uL (3.80-5.20) 07/22/18 07:17 Hgb 11.0 g/dL (11.0-16.0) 07/22/18 07:17 Hct 32.9 % (34.0-47.0) L 07/22/18 07:17 MCV 86.3 fL (81.0-99.0) 07/22/18 07:17 MCH 28.9 pg (27.0-31.0) 07/22/18 07:17 MCHC 33.5 g/dL (33.0-37.0) 07/22/18 07:17 RDW 12.4 % (11.5-14.5) 07/22/18 07:17 Plt Count 275 K/uL (130-400) 07/22/18 07:17 MPV 8.6 fL (7.2-11.7) 07/22/18 07:17 Neut % (Auto) 77.5 % (50.0-75.0) H 07/22/18 07:17 Lymph % (Auto) 12.3 % (20.0-40.0) L 07/22/18 07:17 [place] % (Auto) 9.8 % (0.0-10.0) 07/22/18 07:17 Eos % (Auto) 0.2 % (0.0-4.0) 07/22/18 07:17 Baso % (Auto) 0.2 % (0.0-2.0) 07/22/18 07:17 Neut # (Auto) 5.5 K/uL (1.8-7.0) 07/22/18 07:17 Lymph # (Auto) 0.9 K/uL (1.0-4.3) L 07/22/18 07:17 [place] # (Auto) 0.7 K/uL (0.0-0.8) 07/22/18 07:17 Eos # (Auto) 0.0 K/uL (0.0-0.7) 07/22/18 07:17 Baso # (Auto) 0.0 K/uL (0.0-0.2) 07/22/18 07:17 Sodium 133 mmol/L (132-148) 07/22/18 07:17 Potassium 3.4 mmol/L (3.6-5.2) L 07/22/18 07:17 Chloride 100 mmol/L (98-107) 07/22/18 07:17 Carbon Dioxide 25 mmol/L (22-30) 07/22/18 07:17 Anion Gap 12 (10-20) 07/22/18 07:17 BUN 5 mg/dL (7-17) L 07/22/18 07:17 Creatinine 0.4 mg/dL (0.7-1.2) L 07/22/18 07:17 Est GFR ( Amer) > 60 07/22/18 07:17 Est GFR (Non-Af Amer) > 60 07/22/18 07:17 Random Glucose 145 mg/dL (65-105) H D 07/22/18 07:17 Hemoglobin A1c 5.8 % (4.2-6.5) 07/21/18 07:23 Calcium 8.2 mg/dl (8.6-10.4) L 07/22/18 07:17 Phosphorus 2.3 mg/dL (2.5-4.5) L 07/22/18 07:17 Magnesium 1.6 mg/dL (1.6-2.3) 07/22/18 07:17 Total Bilirubin 0.4 mg/dL (0.2-1.3) 07/22/18 07:17 AST 25 U/L (14-36) 07/22/18 07:17 ALT 24 U/L (9-52) 07/22/18 07:17 Alkaline Phosphatase 58 U/L (38-126) 07/22/18 07:17 Total Protein 6.8 g/dL (6.3-8.3) 07/22/18 07:17 Albumin 3.5 g/dL (3.5-5.0) 07/22/18 07:17 Globulin 3.3 gm/dL (2.2-3.9) 07/22/18 07:17 Albumin/Globulin Ratio 1.1 (1.0-2.1) 07/22/18 07:17 Triglycerides 47 mg/dL (0-149) 07/21/18 03:33 Cholesterol 132 mg/dL (0-199) 07/21/18 03:33 LDL Cholesterol Direct 80 mg/dL (0-129) 07/21/18 03:33 HDL Cholesterol 47 mg/dL (30-70) 07/21/18 03:33 Lipase 33 U/L (23-300) 07/20/18 22:10 Urine Color Val (YELLOW) 07/20/18 22:10 Urine Clarity Hazy (Clear) 07/20/18 22:10 Urine pH 6.0 (5.0-8.0) 07/20/18 22:10 Ur Specific [place] 1.031 (1.003-1.030) H 07/20/18 22:10 Urine Protein 2+ mg/dL (NEGATIVE) H 07/20/18 22:10 Urine Glucose (UA) Normal mg/dL (Normal) 07/20/18 22:10 Urine Ketones 2+ mg/dL (NEGATIVE) H 07/20/18 22:10 Urine Blood Negative (NEGATIVE) 07/20/18 22:10 Urine Nitrate Negative (NEGATIVE) 07/20/18 22:10 Urine Bilirubin Negative (NEGATIVE) 07/20/18 22:10 Urine Urobilinogen 4.0 mg/dL (0.2-1.0) H 07/20/18 22:10 Ur Leukocyte Esterase 3+ Jeremías/uL (Negative) H 07/20/18 22:10 Urine WBC (Auto) 35 /hpf (0-5) H 07/20/18 22:10 Urine RBC (Auto) 9 /hpf (0-3) H 07/20/18 22:10 Ur Squamous Epith Cells 14 /hpf (0-5) H 07/20/18 22:10 Urine HCG, Qual Negative (NEGATIVE) 07/22/18 07:17 Salicylates < 1.0 mg/dL 1 07/21/18 03:33 Urine Opiates Screen Negative (NEGATIVE) 07/21/18 03:28 Urine Methadone Screen Negative (NEGATIVE) 07/21/18 03:28 Acetaminophen < 10.0 ug/mL (10.0-30.0) L 07/21/18 03:33 Ur Barbiturates Screen Negative (NEGATIVE) 07/21/18 03:28 Ur Phencyclidine Scrn Negative (NEGATIVE) 07/21/18 03:28 Ur Amphetamines Screen Negative (NEGATIVE) 07/21/18 03:28 U Benzodiazepines Scrn Negative (NEGATIVE) 07/21/18 03:28 U Oth Cocaine Metabols Negative (NEGATIVE) 07/21/18 03:28 U Cannabinoids Screen Negative (NEGATIVE) 07/21/18 03:28 Alcohol, Quantitative < 10 mg/dl (0-10) 07/21/18 03:33 - Hospital Course Hospital Course: Patient is a 22 year old female with past medical history of ovarian cysts who presented to the ED with acute onset epigastric abdominal pain after taking 1000 mg Naproxen earlier that day on an empty stomach for pain. Patient endorses associated nausea and multiple episodes of nonbilious nonbloody vomiting at home prior to arrival. Patient has also not had a bowel movement in 4 days. She denies any chest pain, palpitations, SOB, cough, melena, hematochezia, vaginal bleeding or discharge. LMP was at the beginning of this month and of normal flow. Of note, patient was seen in ED the previous day for lower abdominal pain and was discharged home on naproxen 800 mg TID PRN. Patient was started on Protonix 40 mg IV daily, Zofran 4 mg IV prn, Reglan 10 mg IVP q8h prn, and Tylenol 650 mg PO q6h prn for abdominal pain and n/v. Dulcolax 10 mg LA once was given for constipation. CT abdomen/pelvis demonstrated solitary L infrarenal calculus, nonobstructive, 2.5x3.5x4.5 mm R adnexal cyst. Transvaginal US demonstrated 5.6x4.8x4.8 cm complex cyst on R ovary, smaller cyst on L ovary. Abdominal US (07/22/18) demonstrated 6 mm nonobstructive midpole left renal calculus. CBC q12h and vitals were followed throughout hospital course and remained stable. Patient had 2 bowel movements on 07/22/18 after being given a rectal suppository. Patient began on liquid diet and was able to progress to normal diet prior to discharge. Upon discharge, patient reported no further abdominal pain or vomiting. Patient will follow up in the clinic for further examination and management of her ovarian cysts. Discharge Exam - Head Exam Head Exam: ATRAUMATIC, NORMAL INSPECTION - Eye Exam Eye Exam: EOMI, Normal appearance - ENT Exam ENT Exam: Mucous Membranes Moist - Neck Exam Neck exam: Normal Inspection - Respiratory Exam Respiratory Exam: Clear to PA & Lateral, NORMAL BREATHING PATTERN, UNREMARKABLE. absent: Respiratory Distress - Cardiovascular Exam Cardiovascular Exam: RRR, +S1, +S2 - GI/Abdominal Exam GI & Abdominal Exam: Soft, Unremarkable. absent: Distended, Tenderness - Extremities Exam Extremities exam: normal inspection - Back Exam Back exam: NORMAL INSPECTION - Neurological Exam Neurological exam: Alert, CN II-XII Intact, Oriented x3 - Psychiatric Exam Psychiatric exam: Normal Affect, Normal Mood - Skin Skin Exam: Dry, Intact, Normal Color, Warm Discharge Plan - Follow Up Plan Condition: GOOD Disposition: HOME/ ROUTINE Patient education suggested?: Yes Instructions: Gastritis (DC) Additional Instructions: Establish care at the [facility] at [facility] within 3-5 days of discharge. Call [phone] to make an appointment. This will serve as your primary care provider. They will assist you in finding an OBGYN physician to manage your ovarian cysts. Make sire you are drinking an adequate amount of water for the next few days. If symptoms recur, return to the nearest emergency department. Establezca atencin en la [facility] en [facility] [place] dentro de los 3-5 trejo posteriores al fouzia. Llame al [phone] para hacer elliott polina. [place] servir dilan elizondo proveedor de atencin primaria. Lo ayudarn a encontrar un mdico obstetra y gineclogo para controlar ohng quistes ovricos. Asegrese de que est bebiendo elliott cantidad adecuada de agua para los prximos trejo. Si los sntomas se repiten, vuelva al servicio de urgencias ms morteza. Referrals: [facility] at [facility] [Outside] <Leonid Mayorga - Last Filed: 07/23/18 07:58> Provider - Provider Date of Admission: 07/20/18 23:38 Attending physician: Blayne Robbins MD Hospital Course - Lab Results Lab Results: Micro Results 07/21/18 00:31 Urine,Clean Catch Urine Culture - Final 10-50,000 CFU/ML. MULTIPLE SPECIES. PROBABLE CONTAMINATION. Most Recent Lab Values WBC 7.1 K/uL (4.8-10.8) 07/22/18 07:17 RBC 3.81 Mil/uL (3.80-5.20) 07/22/18 07:17 Hgb 11.0 g/dL (11.0-16.0) 07/22/18 07:17 Hct 32.9 % (34.0-47.0) L 07/22/18 07:17 MCV 86.3 fL (81.0-99.0) 07/22/18 07:17 MCH 28.9 pg (27.0-31.0) 07/22/18 07:17 MCHC 33.5 g/dL (33.0-37.0) 07/22/18 07:17 RDW 12.4 % (11.5-14.5) 07/22/18 07:17 Plt Count 275 K/uL (130-400) 07/22/18 07:17 MPV 8.6 fL (7.2-11.7) 07/22/18 07:17 Neut % (Auto) 77.5 % (50.0-75.0) H 07/22/18 07:17 Lymph % (Auto) 12.3 % (20.0-40.0) L 07/22/18 07:17 [place] % (Auto) 9.8 % (0.0-10.0) 07/22/18 07:17 Eos % (Auto) 0.2 % (0.0-4.0) 07/22/18 07:17 Baso % (Auto) 0.2 % (0.0-2.0) 07/22/18 07:17 Neut # (Auto) 5.5 K/uL (1.8-7.0) 07/22/18 07:17 Lymph # (Auto) 0.9 K/uL (1.0-4.3) L 07/22/18 07:17 [place] # (Auto) 0.7 K/uL (0.0-0.8) 07/22/18 07:17 Eos # (Auto) 0.0 K/uL (0.0-0.7) 07/22/18 07:17 Baso # (Auto) 0.0 K/uL (0.0-0.2) 07/22/18 07:17 Sodium 133 mmol/L (132-148) 07/22/18 07:17 Potassium 3.4 mmol/L (3.6-5.2) L 07/22/18 07:17 Chloride 100 mmol/L (98-107) 07/22/18 07:17 Carbon Dioxide 25 mmol/L (22-30) 07/22/18 07:17 Anion Gap 12 (10-20) 07/22/18 07:17 BUN 5 mg/dL (7-17) L 07/22/18 07:17 Creatinine 0.4 mg/dL (0.7-1.2) L 07/22/18 07:17 Est GFR ( Amer) > 60 07/22/18 07:17 Est GFR (Non-Af Amer) > 60 07/22/18 07:17 Random Glucose 145 mg/dL (65-105) H D 07/22/18 07:17 Hemoglobin A1c 5.8 % (4.2-6.5) 07/21/18 07:23 Calcium 8.2 mg/dl (8.6-10.4) L 07/22/18 07:17 Phosphorus 2.3 mg/dL (2.5-4.5) L 07/22/18 07:17 Magnesium 1.6 mg/dL (1.6-2.3) 07/22/18 07:17 Total Bilirubin 0.4 mg/dL (0.2-1.3) 07/22/18 07:17 AST 25 U/L (14-36) 07/22/18 07:17 ALT 24 U/L (9-52) 07/22/18 07:17 Alkaline Phosphatase 58 U/L (38-126) 07/22/18 07:17 Total Protein 6.8 g/dL (6.3-8.3) 07/22/18 07:17 Albumin 3.5 g/dL (3.5-5.0) 07/22/18 07:17 Globulin 3.3 gm/dL (2.2-3.9) 07/22/18 07:17 Albumin/Globulin Ratio 1.1 (1.0-2.1) 07/22/18 07:17 Triglycerides 47 mg/dL (0-149) 07/21/18 03:33 Cholesterol 132 mg/dL (0-199) 07/21/18 03:33 LDL Cholesterol Direct 80 mg/dL (0-129) 07/21/18 03:33 HDL Cholesterol 47 mg/dL (30-70) 07/21/18 03:33 Lipase 33 U/L (23-300) 07/20/18 22:10 Urine Color Val (YELLOW) 07/20/18 22:10 Urine Clarity Hazy (Clear) 07/20/18 22:10 Urine pH 6.0 (5.0-8.0) 07/20/18 22:10 Ur Specific [place] 1.031 (1.003-1.030) H 07/20/18 22:10 Urine Protein 2+ mg/dL (NEGATIVE) H 07/20/18 22:10 Urine Glucose (UA) Normal mg/dL (Normal) 07/20/18 22:10 Urine Ketones 2+ mg/dL (NEGATIVE) H 07/20/18 22:10 Urine Blood Negative (NEGATIVE) 07/20/18 22:10 Urine Nitrate Negative (NEGATIVE) 07/20/18 22:10 Urine Bilirubin Negative (NEGATIVE) 07/20/18 22:10 Urine Urobilinogen 4.0 mg/dL (0.2-1.0) H 07/20/18 22:10 Ur Leukocyte Esterase 3+ Jeremías/uL (Negative) H 07/20/18 22:10 Urine WBC (Auto) 35 /hpf (0-5) H 07/20/18 22:10 Urine RBC (Auto) 9 /hpf (0-3) H 07/20/18 22:10 Ur Squamous Epith Cells 14 /hpf (0-5) H 07/20/18 22:10 Urine HCG, Qual Negative (NEGATIVE) 07/22/18 07:17 Salicylates < 1.0 mg/dL 1 07/21/18 03:33 Urine Opiates Screen Negative (NEGATIVE) 07/21/18 03:28 Urine Methadone Screen Negative (NEGATIVE) 07/21/18 03:28 Acetaminophen < 10.0 ug/mL (10.0-30.0) L 07/21/18 03:33 Ur Barbiturates Screen Negative (NEGATIVE) 07/21/18 03:28 Ur Phencyclidine Scrn Negative (NEGATIVE) 07/21/18 03:28 Ur Amphetamines Screen Negative (NEGATIVE) 07/21/18 03:28 U Benzodiazepines Scrn Negative (NEGATIVE) 07/21/18 03:28 U Oth Cocaine Metabols Negative (NEGATIVE) 07/21/18 03:28 U Cannabinoids Screen Negative (NEGATIVE) 07/21/18 03:28 Alcohol, Quantitative < 10 mg/dl (0-10) 07/21/18 03:33 Attending/Attestation - Attestation I have personally seen and examined this patient.: Yes I have fully participated in the care of the patient.: Yes I have reviewed all pertinent clinical information, including history, physical exam and plan: Yes Notes (Text): 07/23/18 07:57 Medical attending: Patient was seen and examined by me. Agree with the above note by the resident The patient was not in any acute distress at this time Later in the day she tolerated diet Leonid Mayorga
[2018-07-23] MEDS ORDERED: Pneumococcal 23-Valent Vaccine IM ONE (10:00)
== END 2018-07-22 18:45 | disposition home or self-care (01) ==
LOC: C.ER 21:13 → C.9E 23:38 → C.3T 07-21 02:58
PROVIDERS: ADMIT Hospitalist; ATTEND Hospitalist
DX: K29.70 Gastritis, unspecified, without bleeding (principal); N83.202 Unspecified ovarian cyst, left side; N83.291 Other ovarian cyst, right side; N88.8 Other specified noninflammatory disorders of cervix uteri; N20.0 Calculus of kidney; J45.909 Unspecified asthma, uncomplicated; Z79.1 Long term (current) use of non-steroidal anti-inflammatories (NSAID)
CPT/HCPCS: 36415; 76700; 76830; 80053; 80061; 80320; 80324; 80329; 80345; 80346; 80349; 80353; 80358; 80361; 81001; 81025; 83036; 83690; 83735; 83992; 84100; 84703; 85025; 87086; 96361; 96365; 96375; 96376; 99285; C9113; G0378; J0696; J2270; J2405; J2765; J7030